=== PATIENT | female | born 1955 | race Caucasian/White ===

== ENCOUNTER 2017-08-16 10:10 | Emergency (ER) | payer OTHER ==
--- NOTE | 2017-08-16 11:33 | UC ---
Lower Extremity/Ankle HPI - HPI Summary HPI Summary: 61 year old female here for left knee pain. She reports she had slip few days ago and she felt sore all week. But this morning, she tripped over her cat and twisted her knee. Reports difficulty with ambulation. No numbness or tingling. - History of Current Complaint Chief Complaint: UCLowerExtremity Stated Complaint: KNEE INJURY Time Seen by Provider: 08/16/17 11:02 Onset/Duration: Sudden Onset Aggravating Factor(s): Ambulation Alleviating Factor(s): Rest Able to Bear Weight: Yes - Allergies/Home Medications Allergies/Adverse Reactions: Allergies Allergy/AdvReac Type Severity Reaction Status Date / Time Amoxicillin [From Augmentin] Allergy Intermediate Hives Verified 08/16/17 10:42 Clavulanic Acid Allergy Intermediate Hives Verified 08/16/17 10:42 [From Augmentin] Home Medications: Home Medications Danielson-3 Fatty Acids [Fish Oil] 1 tab PO DAILY 08/16/17 [History Confirmed ] PMH/Surg Hx/FS Hx/Imm Hx - Surgical History Surgical History: Yes Surgery Procedure, Year, and Place: hysterectomy,appendectomy,hernia repair with bowel resection,[place],ASD REPAIR 2003(NON-FERROMAGNETIC,SAFE FOR MRI,CARD ON FILE IN SYSTEM) - Social History Alcohol Use: None Substance Use Type: None Smoking Status (MU): Never Smoked Tobacco - Immunization History Most Recent Influenza Vaccination: 07/2017 Review of Systems Constitutional: Negative Skin: Negative Eyes: Negative ENT: Negative Respiratory: Negative Cardiovascular: Negative Gastrointestinal: Negative Genitourinary: Negative Motor: Negative Neurovascular: Negative Musculoskeletal: Decreased ROM Neurological: Negative Psychological: Negative All Other Systems Reviewed And Are Negative: Yes Physical Exam Triage Information Reviewed: Yes Appearance: Well-Appearing, No Pain Distress, Well-Nourished Vital Signs: Initial Vital Signs Temp 35.9 C 08/16/17 10:37 Pulse 79 08/16/17 10:37 Resp 16 08/16/17 10:37 BP 134/71 08/16/17 10:37 Pulse Ox 100 08/16/17 10:37 ENT: Positive: Normal ENT inspection Respiratory: Positive: Chest non-tender, Lungs clear, Normal breath sounds, No respiratory distress Cardiovascular: Positive: RRR, No Murmur Abdomen Description: Positive: Nontender Musculoskeletal: Positive: Other: - Left know with no hematoma or bruising TTP over medial meniscus Diagnostics - Radiology No standard instances Xray Interpretation: Positive (See Comments) - Left knee negative for fracture. Soft tissue swelling. Radiology Interpretation Completed By: Radiologist Lower Extremity Course/Dx - Course Course Of Treatment: Left knee pain - Differential Dx/Diagnosis Differential Diagnosis/HQI/PQRI: Arthritis, Sprain, Strain Provider Diagnoses: Left knee pain Discharge - Discharge Plan Condition: Good Disposition: HOME Prescriptions: Naproxen Sodium [Naproxen Sodium 500 MG TAB] 500 mg PO BID #20 tab Patient Education Materials: Knee Sprain (ED) Referrals: Sekou Sewell MD [Primary Care Provider] -
[2017-08-16 12:07] VITALS: BP 118/77
--- NOTE | 2017-08-16 12:35 | RAD ---
Indication: LEFT knee pain and edema following injury. Comparison: No relevant prior exams available on the [facility] PACS for comparison. Technique: LEFT knee: AP, tunnel, lateral, sunrise views. Report: Indolent nonspecific calcifications within the anterior subcutaneous tissue plane at the level of the patella. Negative for joint effusion, fracture, or malalignment. Mild osteophytosis. Mild medial joint space narrowing. Nonfocal soft tissue edema. IMPRESSION: 1. Negative for joint effusion, fracture, or malalignment. 2. Kellgren and Bin grade 2 osteoarthritis. 3. Nonfocal soft tissue edema.
== END 2017-08-16 13:13 | disposition home or self-care (01) ==
LOC: UCEAST 10:10
DX: M25.562 Pain in left knee (principal); W01.0XXA Fall on same level from slipping, tripping and stumbling without subsequent striking against object, initial encounter; Y93.01 Activity, walking, marching and hiking; Y92.009 Unspecified place in unspecified non-institutional (private) residence as the place of occurrence of the external cause; Y99.9 Unspecified external cause status
CPT/HCPCS: 99213; G0463